=== PATIENT | male | born 1985 | race Caucasian/White ===

== ENCOUNTER 2020-12-26 13:32 | Emergency (ER) | payer OTHER ==
[~2020-12-26] VITALS: Ht 182.9 cm; Wt 88.5 kg
--- NOTE | 2020-12-26 13:51 | NUR ---
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 RATES PAIN 5/10. WILL CONTINUE TO MONITOR THE PATIENT.
[2020-12-26] MEDS ORDERED: KETOROLAC TROMETHAMINE INJ 60 MG/2 ML VIAL IM ONE (14:30)
[2020-12-26] MEDS ORDERED: KETOROLAC TROMETHAMINE INJ 30 MG/ML VIAL ONE (14:36)
[2020-12-26] MEDS ORDERED: HYDR-3972 PO (15:36)
[2020-12-26] MEDS ORDERED: IBUP-1957 PO (15:36)
[2020-12-26] MEDS ORDERED: HYDROCODONE/APAP 5/325MG TABLET PO ONE (16:00)
[2020-12-26] MEDS ORDERED: HYDROCODONE/APAP 5/325MG TABLET ONE (16:00)
--- NOTE | 2020-12-26 16:34 | NUR ---
Splint applied to RIGHT LEG, crutches provided. Workers comp paperworks completed. Rx provided. Patient discharged to home in stable condition. Written and verbal after care instructions given. Patient verbalizes understanding of instruction.
[2020-12-26 16:35] VITALS: BP 131/86
== END 2020-12-26 16:35 | disposition home or self-care (01) ==
LOC: ER 13:34
DX: S82.491A Other fracture of shaft of right fibula, initial encounter for closed fracture (principal); S82.391A Other fracture of lower end of right tibia, initial encounter for closed fracture; S86.812A Strain of other muscle(s) and tendon(s) at lower leg level, left leg, initial encounter; Z88.1 Allergy status to other antibiotic agents; Z60.2 Problems related to living alone; X58.XXXA Exposure to other specified factors, initial encounter; Y93.89 Activity, other specified; Y92.39 Other specified sports and athletic area as the place of occurrence of the external cause; Y99.0 Civilian activity done for income or pay
CPT/HCPCS: 29515; 73590 ×2; 96372; 99283; J1885